=== PATIENT | female | born 1985 | race Caucasian/White ===

== ENCOUNTER 2017-11-07 16:40 | Observation (INO) | payer OTHER ==
[~2017-11-07] VITALS: Ht 170.2 cm; Wt 95.7 kg
[2017-11-07] MEDS ORDERED: PREN-380 PO (17:02)
[2017-11-07 17:40] VITALS: BP 128/67
== END 2017-11-07 18:59 | disposition home or self-care (01) ==
LOC: MLD 16:40
PROVIDERS: ADMIT Obstetrics & Gynecology; ATTEND Obstetrics & Gynecology
DX: O99.89 Other specified diseases and conditions complicating pregnancy, childbirth and the puerperium (principal); R10.9 Unspecified abdominal pain; Z3A.35 35 weeks gestation of pregnancy
CPT/HCPCS: 76805; G0378; Q0092

== ENCOUNTER 2018-02-02 15:48 | Inpatient (IN) | payer OTHER ==
[~2018-02-02] VITALS: Ht 170.2 cm; Wt 97.6 kg
[~2018-02-02 15:48] MED LIST: PREN-380 PO
[2018-02-02 16:00] VITALS: BP 101/65
[2018-02-02] MEDS ORDERED: ONDANSETRON 4 MG ODT PO ONE (16:25)
[2018-02-02] MEDS ORDERED: LORazepam 1 MG TAB PO ONE ×2 (16:25→17:00)
[2018-02-02 18:23] LABS: BASOPHILS # (AUTO) 0.1 K/uL (0.00-0.22); BASOPHILS % (AUTO) 0.5 % (0.0-2.0); EOSINOPHILS # (AUTO) 0.3 K/uL (0-0.4); EOSINOPHILS % (AUTO) 2.7 % (0.0-4.0); HEMOGLOBIN 14.2 g/dL (12.0-16.0); LYMPHOCYTES # (AUTO) 2.2 K/uL (2.5-16.5); LYMPHOCYTES % (AUTO) 18.4 % (20.5-51.1); MEAN CORPUSCULAR HEMOGLOBIN 28 pg (27-31); MEAN CORPUSCULAR HGB CONC 33 g/dL (33-37); MEAN CORPUSCULAR VOLUME 84.3 fL (80-94); MONOCYTES # (AUTO) 0.8 K/uL (0.8-1.0); MONOCYTES % (AUTO) 6.4 % (1.7-9.3); NEUTROPHILS # (AUTO) 8.6 K/uL (1.8-7.7); PLATELET COUNT (AUTO) 279 K/uL (140-450); RED CELL DISTRIBUTION WIDTH 19.6 % (11.6-13.7)
[2018-02-02 18:40] LABS: APPEARANCE,URINE CLEAR (CLEAR); BILIRUBIN,URINE NEGATIVE (NEGATIVE); BLOOD, URINE TRACE-I (NEGATIVE); COLOR,URINE YELLOW (YELLOW); LEUKOCYTE ESTERASE ,URINE NEGATIVE (NEGATIVE); NITRITE, URINE NEGATIVE (NEGATIVE); UGLUCOSE NEGATIVE (NEGATIVE)
[2018-02-02 18:52] LABS: ANION GAP 13.3 (8-16); CARBON DIOXIDE 26.4 mmol/L (21-32); CHLORIDE 96 mmol/L (98-107); CREATININE 0.7 mg/dL (0.6-1.3); GFR ARICAN-AMERICAN 126 mL/min (>90); GLUCOSE 91 mg/dL (74-106); POTASSIUM 3.7 mmol/L (3.5-5.1); SODIUM SERUM 132 mmol/L (136-145); UREA NITROGEN, BLOOD 10 mg/dL (7-18)
[2018-02-02 18:53] LABS: BARBITURATE, URINE NEG. ng/ml (NEG <=200); BENZODIAZEPINE, URINE NEG. ng/mL (NEG <=200); CANNABINOID, URINE NEG. ng/mL (NEG <=50); COCAINE, URINE NEG. ng/mL (NEG <=300); OPIATE, URINE NEG. ng/mL (NEG <=2000); PHENCYCLIDINE SCREEN,URINE NEG. ng/mL (NEG <=25)
[2018-02-02 18:59] LABS: ASPARTATE AMINOTRANSFERASE 25 U/L (15-37); TOTAL BILIRUBIN 0.5 mg/dL (0.0-1.0)
[2018-02-02 19:02] LABS: ACETAMINOPHEN < 0.5 ug/ml (10-30)
[2018-02-02] MEDS ORDERED: HYDROcodone/APAP 5/325 MG 1 TAB TAB PO PRN (23:15)
[2018-02-02] MEDS ORDERED: LORazepam 2 MG/ML VIAL IVP PRN (23:15)
[2018-02-02] MEDS ORDERED: TRAZ-343 PO (23:47)
[2018-02-02] MEDS ORDERED: HAL5 PO (23:47)
[2018-02-02] MEDS ORDERED: OLAN2.5T1 PO (23:47)
[2018-02-03 00:27] VITALS: BP 119/72
[2018-02-03] MEDS ORDERED: traZODone 50 MG TAB PO SCH ×2 (02:00→21:00)
[2018-02-03 08:08] VITALS: BP 126/82
[2018-02-03] MEDS ORDERED: POTASSIUM CHLORIDE 10 MEQ TABER PO SCH (08:30)
[2018-02-03] MEDS ORDERED: MULTIVIT/MIN/CA/FE/FA 1 TAB PO SCH (09:00)
[2018-02-03] MEDS ORDERED: OLANZapine 2.5 MG TAB PO SCH (09:00)
[2018-02-03] MEDS ORDERED: HALOPERIDOL 5 MG TAB PO SCH (09:00)
[2018-02-03 10:25] LABS: BASOPHILS % (AUTO) 0.5 % (0.0-2.0); EOSINOPHILS # (AUTO) 0.3 K/uL (0-0.4); EOSINOPHILS % (AUTO) 4.1 % (0.0-4.0); HEMATOCRIT 46.1 % (36-48); LYMPHOCYTES # (AUTO) 1.9 K/uL (2.5-16.5); LYMPHOCYTES % (AUTO) 23.5 % (20.5-51.1); MEAN CORPUSCULAR HEMOGLOBIN 28 pg (27-31); MEAN CORPUSCULAR HGB CONC 33 g/dL (33-37); MEAN CORPUSCULAR VOLUME 85.5 fL (80-94); MONOCYTES # (AUTO) 0.9 K/uL (0.8-1.0); MONOCYTES % (AUTO) 11.6 % (1.7-9.3); NEUTROPHILS # (AUTO) 4.9 K/uL (1.8-7.7); NEUTROPHILS % (AUTO) 60.3 % (42.2-75.2); PLATELET COUNT (AUTO) 303 K/uL (140-450); RED BLOOD CELL COUNT(AUTO) 5.38 MIL/uL (4.20-5.40); RED CELL DISTRIBUTION WIDTH 19.5 % (11.6-13.7); WHITE BLOOD COUNT (AUTO) 8.1 K/uL (4.8-10.8)
[2018-02-03 10:39] LABS: ANION GAP 10.6 (8-16); CARBON DIOXIDE 28.4 mmol/L (21-32); CREATININE 0.9 mg/dL (0.6-1.3)
[2018-02-03 16:00] VITALS: BP 122/74
== END 2018-02-03 19:55 | disposition home or self-care (01) | DRG 425 ==
LOC: MED 15:48 → MTU 23:26
PROVIDERS: ADMIT Hospitalist; ATTEND Hospitalist
DX: E87.6 Hypokalemia (principal); F25.0 Schizoaffective disorder, bipolar type; R45.851 Suicidal ideations; E87.1 Hypo-osmolality and hyponatremia; F31.9 Bipolar disorder, unspecified; D72.829 Elevated white blood cell count, unspecified; F41.9 Anxiety disorder, unspecified; F17.210 Nicotine dependence, cigarettes, uncomplicated; R00.0 Tachycardia, unspecified
CPT/HCPCS: 36415; 80048; 80053; 80305; 81003; 84484; 84702; 85025; 87081; 93005; 99285; C1758; G0480; G0482; J1630; S0119